=== PATIENT | female | born 1950 | race Caucasian/White ===

== ENCOUNTER 2018-04-15 09:13 | Inpatient (IN) | payer MEDICARE ==
[~2018-04-15] VITALS: Ht 162.6 cm; Wt 56.7 kg
[~2018-04-15 09:13] MED LIST: ADV250 IH; ALBU18HF7 IH; METO50TA18 PO; ROSU10TA PO; VIT1CAPS4 PO
[2018-04-15 10:08] LABS: BASOPHILS % (AUTO) 0.3 % (0.0-5.0); EOSINOPHILS % (AUTO) 0.1 % (0.0-8.0); HEMATOCRIT 39.5 % (36-48); LYMPHOCYTES % (AUTO) 2.8 % (21.0-51.0); MEAN CORPUSCULAR HGB CONC 33.7 g/dL (32.0-36.0); MONOCYTES % (AUTO) 4.9 % (3.0-13.0); NEUTROPHILS % (AUTO) 91.9 % (40.0-77.0); PLATELET COUNT (AUTO) 229 K/uL (130-400); RED BLOOD CELL COUNT(AUTO) 4.44 MIL/uL (4.00-5.50); RED CELL DISTRIBUTION WIDTH 13.9 % (11.0-15.5)
[2018-04-15 10:13] LABS: WHITE BLOOD COUNT (AUTO) 30.4 K/uL (4.8-10.8)
[2018-04-15 10:14] LABS: POTASSIUM 3.7 mmol/L (3.5-5.1)
[2018-04-15 10:18] LABS: INR 1.15 (0.85-1.15); PARTIAL THROMBOPLASTIN TIME 32.9 SEC (26.3-35.5)
[2018-04-15] MEDS ORDERED: SODIUM CHLORIDE 0.9% 1000ML 2,000 ML IV ONE (10:24)
[2018-04-15] MEDS ORDERED: AZITHROMYCIN 500MG+NS 250ML 250 ML IV ONE (10:24)
[2018-04-15] MEDS ORDERED: CEFTRIAXONE SODIUM 1 GM ONE (10:25)
[2018-04-15 10:31] LABS: ALBUMIN 2.9 g/dL (3.5-5.0); BILIRUBIN,TOTAL 1.5 mg/dL (0.2-1.0); CREATINE KINASE MB 0.5 ng/mL (0.5-3.6); TOTAL PROTEIN, SERUM 6.2 g/dL (6.0-8.3)
[2018-04-15 10:40] LABS: APPEARANCE,URINE Turbid (CLEAR); BILIRUBIN,URINE Negative (NEGATIVE); COLOR,URINE Dark Yellow (YELLOW); GLUCOSE, URINE (UA) Negative (NEGATIVE); KETONES,URINE Trace mg/dL (NEGATIVE); LEUKOCYTE ESTERASE ,URINE Large (NEGATIVE); NITRATE,URINE Negative (NEGATIVE); OCCULT BLOOD,URINE Moderate (NEGATIVE); PROTEIN,URINE POS 1+ (NEGATIVE)
[2018-04-15 10:46] LABS: BAND NEUTROPHILS % (MANUAL) 13 % (0-2); LYMPHOCYTES % (MANUAL) 4 % (22-44); METAMYELOCYTES % 3 % (0-0); MONOCYTES % (MANUAL) 5 % (2-9); SEGMENTED NEUTROPHILS % 75 % (40-70)
[2018-04-15 10:47] LABS: MAN.DIFF COMMENT-IMPRESSION MANUAL DIFFERENTIAL
[2018-04-15 11:02] LABS: RBC,URINE None Seen /HPF (0-1)
[2018-04-15 11:03] LABS: BACTERIA,URINE Few /HPF (None Seen); HYALINE CASTS, URINE 0-1 /LPF (0-1 /LPF); MUCUS,URINE Rare LPF (None Seen); SQUAMOUS EPITHELIAL CELL,UR Few /HPF (0-2)
[2018-04-15] MEDS ORDERED: ACETAMINOPHEN 325 MG TAB ONE (12:43)
[2018-04-15] MEDS ORDERED: SODIUM CHLORIDE 0.9% 1000ML 1,000 ML IV ONE (13:09)
[2018-04-15 17:05] VITALS: BP 144/64
[2018-04-15] MEDS ORDERED: ONDANSETRON HCL 4 MG/2 ML VIAL IVP PRN (17:45)
[2018-04-15] MEDS ORDERED: ACETAMINOPHEN 325 MG TAB PO PRN (17:45)
[2018-04-15] MEDS: SODIUM CHLORIDE 0.9% 1000ML 1,000 ML IV SCH (18:53)
[2018-04-15] MEDS: IPRATROPIUM/ALBUTEROL SULFATE 3 ML SOLUTION IH SCH ×2 (19:02→23:33)
[2018-04-15 19:50] VITALS: BP 127/66
[2018-04-15 23:35] VITALS: BP 98/58
[2018-04-16] MEDS: GUAIFENESIN-CODEINE 5 ML SYRUP PO PRN ×2 (00:10→09:42)
[2018-04-16] MEDS: METHYLPREDNISOLONE SOD SUCC 40MG/ML 1ML IVP SCH ×3 (01:55→17:19)
[2018-04-16] MEDS: SODIUM CHLORIDE 0.9% 1000ML 1,000 ML IV SCH (02:00)
[2018-04-16 04:05] VITALS: BP 97/54
[2018-04-16 05:22] LABS: BASOPHILS % (AUTO) 0.2 % (0.0-5.0); HEMATOCRIT 32.5 % (36-48); LYMPHOCYTES % (AUTO) 2.6 % (21.0-51.0); MEAN CORPUSCULAR HEMOGLOBIN 31.3 pg (27.0-33.0); MEAN CORPUSCULAR HGB CONC 34.9 g/dL (32.0-36.0); MEAN CORPUSCULAR VOLUME 89.7 fL (79-99); MONOCYTES % (AUTO) 3.3 % (3.0-13.0); NEUTROPHILS % (AUTO) 93.9 % (40.0-77.0); PLATELET COUNT (AUTO) 200 K/uL (130-400); RED BLOOD CELL COUNT(AUTO) 3.62 MIL/uL (4.00-5.50); RED CELL DISTRIBUTION WIDTH 14.2 % (11.0-15.5); WHITE BLOOD COUNT (AUTO) 17.4 K/uL (4.8-10.8)
[2018-04-16 05:33] LABS: CREATININE 1.4 mg/dL (0.5-1.5); POTASSIUM 3.5 mmol/L (3.5-5.1)
[2018-04-16] MEDS: IPRATROPIUM/ALBUTEROL SULFATE 3 ML SOLUTION IH SCH ×4 (05:58→23:19)
[2018-04-16 08:43] VITALS: BP 113/64
[2018-04-16] MEDS: AZITHROMYCIN 500MG+NS 250ML 250 ML IV SCH (09:43)
[2018-04-16] MEDS: CEFTRIAXONE SODIUM 1 GM IVP SCH (09:43)
[2018-04-16] MEDS: ENOXAPARIN SODIUM 30 MG/0.3 ML SQ SCH (09:44)
[2018-04-16 12:00] VITALS: BP 129/53
[2018-04-16 16:00] VITALS: BP 135/62
[2018-04-16 19:30] VITALS: BP 142/74
[2018-04-16 23:50] VITALS: BP 100/53
[2018-04-17] VITALS (7 sets, daily range): BP systolic 100–136; BP diastolic 51–77
[2018-04-17] MEDS: METHYLPREDNISOLONE SOD SUCC 40MG/ML 1ML IVP SCH ×4 (00:08→23:56)
[2018-04-17] MEDS: GUAIFENESIN-CODEINE 5 ML SYRUP PO PRN ×2 (00:08→20:56)
[2018-04-17 05:07] LABS: BASOPHILS % (AUTO) 0.1 % (0.0-5.0); HEMATOCRIT 33.2 % (36-48); LYMPHOCYTES % (AUTO) 3.7 % (21.0-51.0); MEAN CORPUSCULAR HEMOGLOBIN 30.2 pg (27.0-33.0); MEAN CORPUSCULAR HGB CONC 33.8 g/dL (32.0-36.0); MEAN CORPUSCULAR VOLUME 89.4 fL (79-99); MONOCYTES % (AUTO) 2.2 % (3.0-13.0); PLATELET COUNT (AUTO) 244 K/uL (130-400); RED BLOOD CELL COUNT(AUTO) 3.72 MIL/uL (4.00-5.50); RED CELL DISTRIBUTION WIDTH 14.4 % (11.0-15.5); WHITE BLOOD COUNT (AUTO) 17.8 K/uL (4.8-10.8)
[2018-04-17 05:12] LABS: CREATININE 1.3 mg/dL (0.5-1.5); MAGNESIUM 1.4 mg/dL (1.80-2.40)
[2018-04-17] MEDS ORDERED: POTASSIUM CHLORIDE 20MEQ/100ML 100 ML IV ONE (05:32)
[2018-04-17] MEDS ORDERED: LIDOCAINE HCL-MPF 1% 2ML VIAL ONE (05:36)
[2018-04-17] MEDS ORDERED: POTASSIUM CHLORIDE 10% ELIXIR 20 MEQ/15 ML UDCUP PO PRN (05:45)
[2018-04-17] MEDS ORDERED: POTASSIUM CHLORIDE 20 MEQ ERTAB PO PRN (05:45)
[2018-04-17] MEDS ORDERED: LIDOCAINE HCL-MPF 1% 2ML VIAL IVP PRN (05:45)
[2018-04-17] MEDS ORDERED: POTASSIUM CHLORIDE 20MEQ/100ML 100 ML IV PRN ×2 (05:45)
[2018-04-17] MEDS: IPRATROPIUM/ALBUTEROL SULFATE 3 ML SOLUTION IH SCH ×3 (06:01→19:05)
[2018-04-17] MEDS: CEFTRIAXONE SODIUM 1 GM IVP SCH (08:36)
[2018-04-17] MEDS: ENOXAPARIN SODIUM 30 MG/0.3 ML SQ SCH (08:37)
[2018-04-17] MEDS: AZITHROMYCIN 500MG+NS 250ML 250 ML IV SCH (10:15)
[2018-04-17] MEDS ORDERED: MAGNESIUM 2GM PREMIX 50ML 50 ML IV SCH (11:15)
[2018-04-17] MEDS: POTASSIUM CHLORIDE 10% ELIXIR 20 MEQ/15 ML UDCUP PO PRN ×3 (12:49→17:12)
[2018-04-18] MEDS: IPRATROPIUM/ALBUTEROL SULFATE 3 ML SOLUTION IH SCH ×5 (00:18→23:26)
[2018-04-18 04:00] VITALS: BP 107/60
[2018-04-18 06:26] LABS: BASOPHILS % (AUTO) 0.1 % (0.0-5.0); EOSINOPHILS % (AUTO) 0.2 % (0.0-8.0); HEMATOCRIT 33.2 % (36-48); LYMPHOCYTES % (AUTO) 2.8 % (21.0-51.0); MEAN CORPUSCULAR HEMOGLOBIN 31.1 pg (27.0-33.0); MEAN CORPUSCULAR HGB CONC 34.7 g/dL (32.0-36.0); MEAN CORPUSCULAR VOLUME 89.4 fL (79-99); MONOCYTES % (AUTO) 2.8 % (3.0-13.0); NEUTROPHILS % (AUTO) 94.1 % (40.0-77.0); PLATELET COUNT (AUTO) 241 K/uL (130-400); RED BLOOD CELL COUNT(AUTO) 3.71 MIL/uL (4.00-5.50); RED CELL DISTRIBUTION WIDTH 14.6 % (11.0-15.5); WHITE BLOOD COUNT (AUTO) 18.1 K/uL (4.8-10.8)
[2018-04-18 06:33] LABS: CREATININE 1.3 mg/dL (0.5-1.5); POTASSIUM 4.7 mmol/L (3.5-5.1)
[2018-04-18] MEDS ORDERED: LEVOFLOXACIN 500 MG/D5W 100 ML 100 ML IV SCH (07:00)
[2018-04-18 08:22] VITALS: BP 125/63
[2018-04-18] MEDS: METHYLPREDNISOLONE SOD SUCC 40MG/ML 1ML IVP SCH ×2 (08:33→16:18)
[2018-04-18] MEDS: ENOXAPARIN SODIUM 30 MG/0.3 ML SQ SCH (08:53)
[2018-04-18] MEDS: GUAIFENESIN-CODEINE 5 ML SYRUP PO PRN ×2 (09:16→21:23)
[2018-04-18 11:38] VITALS: BP 131/68
[2018-04-18 15:54] VITALS: BP 136/71
[2018-04-18 19:31] VITALS: BP 144/73
[2018-04-18 23:19] VITALS: BP 128/67
[2018-04-19] MEDS: METHYLPREDNISOLONE SOD SUCC 40MG/ML 1ML IVP SCH ×3 (00:44→17:33)
[2018-04-19 03:35] VITALS: BP 124/82
[2018-04-19 04:35] LABS: HEMATOCRIT 34.8 % (36-48); MEAN CORPUSCULAR HEMOGLOBIN 30.1 pg (27.0-33.0); MEAN CORPUSCULAR HGB CONC 33.9 g/dL (32.0-36.0); MEAN CORPUSCULAR VOLUME 88.6 fL (79-99); PLATELET COUNT (AUTO) 268 K/uL (130-400); RED BLOOD CELL COUNT(AUTO) 3.93 MIL/uL (4.00-5.50); RED CELL DISTRIBUTION WIDTH 14.7 % (11.0-15.5); WHITE BLOOD COUNT (AUTO) 15.5 K/uL (4.8-10.8)
[2018-04-19 04:57] LABS: BAND NEUTROPHILS % (MANUAL) 4 % (0-2); LYMPHOCYTES % (MANUAL) 6 % (22-44); MAN.DIFF COMMENT-IMPRESSION MANUAL DIFFERENTIAL; MONOCYTES % (MANUAL) 9 % (2-9); PLATELET MORPHOLOGY COMMENT ADEQUATE; SEGMENTED NEUTROPHILS % 81 % (40-70)
[2018-04-19] MEDS: IPRATROPIUM/ALBUTEROL SULFATE 3 ML SOLUTION IH SCH ×3 (06:47→18:52)
[2018-04-19] MEDS ORDERED: LEVOFLOXACIN 500 MG/D5W 100 ML 100 ML IV SCH (07:00)
[2018-04-19] MEDS: GUAIFENESIN-CODEINE 5 ML SYRUP PO PRN ×2 (07:02→17:36)
[2018-04-19 08:28] VITALS: BP 120/75
[2018-04-19 11:00] VITALS: BP 142/72
[2018-04-19] MEDS: ENOXAPARIN SODIUM 30 MG/0.3 ML SQ SCH (11:37)
[2018-04-19] MEDS ORDERED: EXEM25TA PO (11:46)
[2018-04-19] MEDS ORDERED: GUAI5SYR4 PO (14:53)
[2018-04-19] MEDS ORDERED: LEVO500T2 PO (14:53)
[2018-04-19] MEDS ORDERED: IPRA3AMP24 IH (14:53)
[2018-04-19 16:00] VITALS: BP 154/77
[2018-04-19] MEDS ORDERED: BUDESONIDE 0.5 MG/2 ML INH IH SCH (18:00)
[2018-04-19 19:35] VITALS: BP 158/86
[2018-04-19] MEDS ORDERED: METOPROLOL TARTRATE 50 MG TAB PO SCH (21:00)
[2018-04-19] MEDS ORDERED: ATORVASTATIN CALCIUM 20 MG TABLET PO SCH (21:00)
[2018-04-20] MEDS ORDERED: SUB TO BREO ELLIPTA 100MCG/25MCG PER P&T IH SCH (09:00)
[2018-04-20] MEDS ORDERED: ASCORBIC ACID 500 MG TAB PO SCH (09:00)
== END 2018-04-19 21:30 | disposition home or self-care (01) | DRG 871 ==
LOC: EDH 09:13 → EDHIP 12:03 → 4CH 16:30 → 3CH 04-16 19:04
PROVIDERS: ADMIT Family Medicine; ATTEND Family Medicine
DX: A41.9 Sepsis, unspecified organism (principal); J69.0 Pneumonitis due to inhalation of food and vomit; J96.01 Acute respiratory failure with hypoxia; J44.1 Chronic obstructive pulmonary disease with (acute) exacerbation; N39.0 Urinary tract infection, site not specified; I10 Essential (primary) hypertension; F17.210 Nicotine dependence, cigarettes, uncomplicated; Z85.3 Personal history of malignant neoplasm of breast
CPT/HCPCS: 36415; 71045; 80048; 80053; 81001; 82550; 82553; 83605; 83735; 84484; 85025; 85610; 85730; 87040; 87088; 87507; 87633; 93005; 94640; 94664; 94760; A4218; J0456; J0696; J1650; J1956; J2920; J3475; J3480; J3490; J7030